=== PATIENT | female | born 1970 | race Caucasian/White ===

== ENCOUNTER → 2020-12-15 | Outpatient (CLI) | payer BC | LOC: KOH-I 11:54 | DX: M25.552 Pain in left hip (principal); M25.551 Pain in right hip; M25.562 Pain in left knee; M25.561 Pain in right knee | CPT/HCPCS: 73522; 73560 ==

== ENCOUNTER 2021-12-28 16:44 | Emergency (ER) | payer BC ==
[2021-12-28 17:19] LABS: HEMOGLOBIN 14.5 gm/dl (12.3-15.3); RED BLOOD COUNT 4.8 M/UL (4.00-5.10); WHITE BLOOD COUNT 10.6 K/UL (4.5-11.0)
[2021-12-28 17:48] LABS: BUN/CREATININE RATIO 16 (0-10)
[2021-12-28] MEDS ORDERED: OMNICEF 300 MG300 MG PO (20:53)
[2021-12-28] MEDS ORDERED: FLOMAX 0.4 MG0.4 MG PO (20:53)
[2021-12-28] MEDS ORDERED: IBU600 MG PO (20:53)
[2021-12-29] MEDS ORDERED: AMOX TR-K CLV1 EAC4 PO (11:42)
== END 2021-12-28 21:22 | disposition home or self-care (01) ==
LOC: ER1 16:44
DX: U07.1 COVID-19 (principal); N20.1 Calculus of ureter; N39.0 Urinary tract infection, site not specified; Z88.0 Allergy status to penicillin
CPT/HCPCS: 0240U; 80053; 81001; 83690; 85025; 99284

== ENCOUNTER 2021-12-29 09:44 | Emergency (ER) | payer BC ==
[~2021-12-29 09:44] MED LIST: FLOMAX 0.4 MG0.4 MG PO; IBU600 MG PO; OMNICEF 300 MG300 MG PO
[2021-12-29 10:41] LABS: HEMOGLOBIN 13.8 gm/dl (12.3-15.3); RED BLOOD COUNT 4.6 M/UL (4.00-5.10)
[2021-12-29 10:47] LABS: WHITE BLOOD COUNT 6.4 K/UL (4.5-11.0)
[2021-12-29] MEDS ORDERED: AMOX TR-K CLV1 EAC4 PO (11:42)
== END 2021-12-29 12:52 | disposition home or self-care (01) ==
LOC: ER1 09:44
PROVIDERS: Physician Assistant
DX: U07.1 COVID-19 (principal); R10.9 Unspecified abdominal pain; Z88.0 Allergy status to penicillin
CPT/HCPCS: 80053; 83605; 83690; 85025; 86140; 99284

== ENCOUNTER → 2022-01-10 | Outpatient (CLI) | payer BC ==
[~2022-01-10] MED LIST changes: +AMOX TR-K CLV1 EAC4 PO
== END ==
LOC: CT 13:55
DX: K35.80 Unspecified acute appendicitis (principal)
CPT/HCPCS: Q9967